=== PATIENT | male | born 1960 | race Caucasian/White ===

== ENCOUNTER 2017-01-02 10:36 | Emergency (ER) | payer BC ==
[~2017-01-02] VITALS: Ht 182.9 cm; Wt 83.4 kg
[2017-01-02 10:37] VITALS: TEMP 36.5; Ht 182.9 cm; Wt 83.4 kg
[2017-01-02] MEDS ORDERED: ONDANSETRON INJ 2 MG/ML 2 ML VIAL IV STA (10:48)
[2017-01-02] MEDS ORDERED: SODIUM CHLORIDE 0.9% 1000ML 1,000 ML IV STA (10:48)
[2017-01-02] MEDS ORDERED: MoRPHine SULFATE 4 MG/ML 1 ML CARP\\VIAL IV STA (10:48)
[2017-01-02 11:03] LABS: BASO % 0.6 %; BASO ABS # 0.04 K/uL (0-0.2); COMPLETE YES; EOS % 2.8 %; HEMATOCRIT 38.2 % (42-52); IG% 0.2 %; LYMPH % 26.8 %; LYMPH ABS # 1.75 K/uL (1.2-3.4); MEAN CELL VOLUME 86.2 fL (80-100); MEAN CORPUSCULAR HEMOGLOBIN 30.7 pg (25-34); MEAN CORPUSCULAR HGB CONC 35.6 g/dl (32-36); MEAN PLATELET VOLUME 9.4 fL (7.4-10.4); MONO % 8.4 %; NEUT % 61.2 %; PLATELET COUNT 255 K/uL (130-400); RED BLOOD COUNT 4.43 M/uL (4.7-6.1); WHITE BLOOD COUNT 6.53 K/uL (4.8-10.8)
--- NOTE | 2017-01-02 11:04 | EMERGENCY ROOM VISIT NOTE ---
History First contact with patient: 10:42 Chief Complaint: ABDOMINAL PAIN Stated Complaint: ABD. PAIN History of Present Illness The patient is a 56 year old male who presents to the Emergency Room with complaints of upper abdominal pain. The patient states his pain started approximately 45 minutes ago. The patient states that initially the pain came and went but has now been quite constant. He states the pain is in the upper abdomen, particularly the right side and he feels it into his back. He rates discomfort a 5/10. He denies fevers. He denies any chest pain, trouble breathing or pain with deep inspiration. He denies any nausea or vomiting. He denies any diarrhea. The patient has history of diabetes, hypertension and hyperlipidemia. He had a normal stress test at the beginning of this year. He has had cholecystectomy. Review of Systems A 10 system review of systems was completed with positives and pertinent negatives listed in the HPI. Past Medical/Surgical History Medical Problems: (1) Diabetes (2) Diabetes (3) Hyperlipidemia (4) Hypertension Social History Smoking Status: Never Smoker Housing Status: lives with family Current/Historical Medications Scheduled Aspirin (Aspir-81), 1 TAB PO DAILY Atorvastatin (Lipitor), 40 MG PO DAILY Bisoprolol Fumarate (Zebeta), 5 MG PO PM Cholecalciferol (Vitamin D3), 1 CAP PO DAILY Diltiazem Hcl Ext Rel (Tiazac), 360 MG PO DAILY Furosemide (Lasix), 40 MG PO DAILY Insulin Aspart (Novolog), 0 DAILY Insulin Glargine (Lantus Solostar), 42 UNITS SC QAM Iron Combinations (Iron Complex), 150 MG PO BID Ramipril (Ramipril), 1 CAP PO DAILY Allergies Coded Allergies: No Known Allergies (Unverified , 01/02/17) Physical Exam Vital Signs Date Time Temp Pulse Resp B/P (MAP) Pulse Ox O2 Delivery O2 Flow Rate FiO2 01/02/17 13:45 54 16 142/82 97 01/02/17 12:19 66 16 147/83 98 Room Air 01/02/17 11:10 62 01/02/17 10:37 36.5 16 18 173/87 99 Room Air Physical Exam VITALS: Vitals are noted on the nurse's note and reviewed by myself. Vital signs stable. The patient is afebrile. He is not tachycardic, tachypneic, hypoxic or hypotensive. GENERAL: This is a 56-year-old male, in no acute distress, nondiaphoretic, well- developed well-nourished. SKIN: The skin was pale, without rashes, erythema, edema, or bruising. There is no tenting of the skin. Capillary reflex less than 2 seconds. HEAD: Normocephalic atraumatic. EARS: The external ears are normal in appearance. EYES: Pupils equal round and reactive to light and accommodation. Conjunctivae without injection, sclerae without icterus. Extraocular movements intact. NOSE: Patent, turbinates without inflammation or discharge. MOUTH: Mucous membranes moist. Tonsils are not enlarged. Pharynx without erythema or exudate. Uvula midline. Airway patent. Tongue does not deviate. NECK: Supple without nuchal rigidity. No lymphadenopathy. No thyromegaly. Cervical spine is nontender. No JVD. HEART: Regular rate and rhythm without murmurs gallops or rubs. LUNGS: Clear to auscultation bilaterally without wheezes, rales or rhonchi. No retractions or accessory muscle use. ABDOMEN: Positive bowel sounds x 4. No obvious abdominal bruits. Soft, nontender, without masses or organomegaly. There is moderate tenderness to palpation to the upper abdomen, particularly right upper quadrant. MUSCULOSKELETAL: No muscle atrophy, erythema, or edema noted. Full range of motion strength in all extremities. Normal gait. Strength 5/5 throughout. NEURO: Patient was alert and oriented to person place and time. No focal neurological deficits. Medical Decision & Procedures ER Provider Diagnostic Interpretation: CT SCAN OF THE ABDOMEN AND PELVIS WITHOUT IV CONTRAST CLINICAL HISTORY: Upper abdominal and right flank pain. COMPARISON STUDY: No priors. TECHNIQUE: CT scan of the abdomen and pelvis is performed from the lung bases to the proximal femora. Images are reviewed in the axial, sagittal, and coronal planes. IV contrast was not administered for this examination as per the referring clinician. Automated dose control exposure was utilized. CT DOSE: 946.86 mGy.cm FINDINGS: Lung bases: The heart is top normal in size and without pericardial effusion. The coronary arteries are densely calcified. There is a small hiatal hernia. The lung bases are clear. Liver: The unenhanced liver is normal in size, contour, and attenuation. There is no intrahepatic biliary ductal dilatation. Gallbladder: Surgically absent noting clips in the gallbladder fossa. Spleen: Normal in size and attenuation. Pancreas: The unenhanced pancreas is moderately atrophic and grossly unremarkable. Adrenal glands: Unremarkable. Kidneys: The unenhanced kidneys demonstrate mild cortical atrophy and are without hydronephrosis. There are no renal calculi identified. Renovascular calcifications are noted. There is no evidence of contour deforming renal mass lesion. Abdominal vasculature: The abdominal aorta is normal in course and caliber noting moderate and age advanced atherosclerotic calcification. Bowel: The small bowel and colon are normal in course and caliber. There is mild to moderate colonic diverticulosis without CT evidence of acute diverticulitis. Moderate to severe constipation is observed. The appendix is well-visualized and normal. Peritoneum: There is no intraperitoneal free air or abdominal ascites. There is a small fat-containing umbilical hernia. Lymphadenopathy: None. Pelvic viscera: The bladder is normal as visualized. The prostate gland is not identified and presumed surgically absent. There is calcification of the penile tunica suggesting Peyronie's disease. Skeletal structures: No lytic or blastic lesions are seen. IMPRESSION: 1. There are no acute infectious or inflammatory findings in the abdomen or pelvis. 2. Moderate to severe constipation. No bowel obstruction is seen. 3. Mild to moderate colonic diverticulosis without CT evidence of acute diverticulitis. 4. The prostate gland is not identified and presumed surgically absent. [~ rep ct add3]] SINGLE VIEW CHEST CLINICAL HISTORY: Upper abdominal pain. FINDINGS: An AP, portable, upright chest radiograph is obtained. No prior studies are available for comparison at the time of dictation. The examination is mildly degraded by portable technique and patient rotation. The cardiomediastinal silhouette is unremarkable. The lungs and pleural spaces are clear. No pneumothorax is seen. The bony thorax is grossly intact. IMPRESSION: No active disease in the chest. Laboratory Results 01/02/17 10:55 Red Blood Count 4.43, Mean Corpuscular Volume 86.2, Mean Corpuscular Hemoglobin 30.7, Mean Corpuscular Hemoglobin Concent 35.6, Mean Platelet Volume 9.4, Neutrophils (%) (Auto) 61.2, Lymphocytes (%) (Auto) 26.8, Monocytes (%) (Auto) 8.4, Eosinophils (%) (Auto) 2.8, Basophils (%) (Auto) 0.6, Neutrophils # (Auto) 4.00, Lymphocytes # (Auto) 1.75, Monocytes # (Auto) 0.55, Eosinophils # (Auto) 0.18, Basophils # (Auto) 0.04 01/02/17 10:55 Test 01/02/17 10:55 01/02/17 11:00 01/02/17 11:14 White Blood Count 6.53 K/uL (4.8-10.8) Red Blood Count 4.43 M/uL (4.7-6.1) Hemoglobin 13.6 g/dL (14.0-18.0) Hematocrit 38.2 % (42-52) Mean Corpuscular Volume 86.2 fL (80-100) Mean Corpuscular Hemoglobin 30.7 pg (25-34) Mean Corpuscular Hemoglobin Concent 35.6 g/dl (32-36) Platelet Count 255 K/uL (130-400) Mean Platelet Volume 9.4 fL (7.4-10.4) Neutrophils (%) (Auto) 61.2 % Lymphocytes (%) (Auto) 26.8 % Monocytes (%) (Auto) 8.4 % Eosinophils (%) (Auto) 2.8 % Basophils (%) (Auto) 0.6 % Neutrophils # (Auto) 4.00 K/uL (1.4-6.5) Lymphocytes # (Auto) 1.75 K/uL (1.2-3.4) Monocytes # (Auto) 0.55 K/uL (0.11-0.59) Eosinophils # (Auto) 0.18 K/uL (0-0.5) Basophils # (Auto) 0.04 K/uL (0-0.2) RDW Standard Deviation 41.0 fL (36.4-46.3) RDW Coefficient of Variation 12.9 % (11.5-14.5) Immature Granulocyte % (Auto) 0.2 % Immature Granulocyte # (Auto) 0.01 K/uL (0.00-0.02) Prothrombin Time 10.7 SECONDS (9.0-12.0) Prothromb Time International Ratio 1.0 (0.9-1.1) Activated Partial Thromboplast Time 26.5 SECONDS (21.0-31.0) Partial Thromboplastin Ratio 1.0 Anion Gap 9.0 mmol/L (3-11) Est Creatinine Clear Calc Drug Dose 27.3 ml/min Estimated GFR () 22.4 Estimated GFR (Non- 19.3 BUN/Creatinine Ratio 13.5 (10-20) Calcium Level 8.9 mg/dl (8.5-10.1) Total Bilirubin 0.6 mg/dl (0.2-1) Aspartate Amino Transf (AST/SGOT) 25 U/L (15-37) Alanine Aminotransferase (ALT/SGPT) 33 U/L (12-78) Alkaline Phosphatase 73 U/L (45-117) Total Creatine Kinase 160 U/L (39-308) Creatine Kinase MB 2.1 ng/ml (0.5-3.6) Creatine Kinase MB Ratio 1.3 (0-3.0) Troponin I < 0.015 ng/ml (0-0.045) Total Protein 7.2 gm/dl (6.4-8.2) Albumin 4.4 gm/dl (3.4-5.0) Globulin 2.8 gm/dl (2.5-4.0) Albumin/Globulin Ratio 1.6 (0.9-2) Lipase 134 U/L (73-393) Urine Color YELLOW Urine Appearance CLEAR (CLEAR) Urine pH 5.0 (4.5-7.5) Urine Specific [place] 1.015 (1.000-1.030) Urine Protein 1+ (NEG) Urine Glucose (UA) NEG (NEG) Urine Ketones NEG (NEG) Urine Occult Blood NEG (NEG) Urine Nitrite NEG (NEG) Urine Bilirubin NEG (NEG) Urine Urobilinogen NEG (NEG) Urine Leukocyte Esterase NEG (NEG) Urine WBC (Auto) 0 /hpf (0-5) Urine RBC (Auto) 0-4 /hpf (0-4) Urine Hyaline Casts (Auto) 1-5 /lpf (0-5) Urine Epithelial Cells (Auto) 0-5 /lpf (0-5) Urine Bacteria (Auto) NEG (NEG) Lactic Acid Level 1.2 mmol/L (0.4-2.0) Medications Administered Medications (Trade) Dose Ordered Sig/Ludin Route Start Time Stop Time Status Last Admin Dose Admin Sodium Chloride 1,000 ml @ 999 mls/hr Q1H1M STAT IV 01/02/17 10:48 01/02/17 11:48 DC 01/02/17 11:15 999 MLS/HR Ondansetron HCl (Zofran Inj) 4 mg NOW STAT IV 01/02/17 10:48 01/02/17 10:51 DC 01/02/17 11:14 4 MG Morphine Sulfate (MoRPHine SULFATE INJ) 4 mg NOW STAT IV 01/02/17 10:48 01/02/17 10:51 DC 01/02/17 11:14 4 MG Polyethylene (Miralax Powder Packet) 17 gm NOW ONCE PO 01/02/17 13:00 01/02/17 13:01 DC 01/02/17 13:10 17 GM Procedure The patient was monitored on a cardiac rehabilitation specialist. They maintained a normal sinus rhythm without ectopy. ECG Indication: abdominal pain Rate (beats per minute): 63 Rhythm: normal sinus Findings: no acute ischemic change Comparison ECG Date: no prior available ED Course The patient was seen and examined. Previous visits were reviewed. The patient does not have a fever or leukocytosis. He does not have any significant electrolyte abnormalities. Troponin was not elevated. Lipase was not elevated. Lactic acid was within normal limits at 1.2. INR was 1.0. Urinalysis is negative. The patient does have elevation in his BUN/creatinine creatinine and states that he has chronic kidney disease. He could not recall what his baseline creatinine is. He states that his GFR is usually around 20 and today it is 19.3. I did ask the certified legal secretary specialist to attempt to contact [facility] to obtain previous laboratory studies. This was unsuccessful. EKG revealed a normal sinus rhythm with a rate of 63 bpm and no acute ischemia CT scan of the abdomen and pelvis was obtained as above. The patient presented to the emergency department with acute onset of upper abdominal pain. He had no chest pain or trouble breathing. The patient underwent the above workup. The CT scan reveals severe constipation. This may be the explanation for the patient's pain. He was feeling significantly improved after 4 mg IV morphine, 4 mg IV Zofran. He was given oral MiraLAX. Given the patient's presentation and only abnormal finding of constipation, I did ask Dr. Mendoza to evaluate the patient as well. He evaluated the patient and agrees with the assessment and treatment plan. The patient is encouraged to continue MiraLAX. He should return with any worsening symptoms. Otherwise, he should follow-up with his family doctor on Wednesday. Medication Reconciliation: I attest that I have personally reviewed the patient' s current medication list. Blood pressure screening: The patient was found to have an elevated blood pressure and was referred to their primary care doctor for recheck and further treatment Medical Decision DIFFERENTIAL DIAGNOSIS: Hepatitis, cholecystitis, cholangitis, biliary colic, pancreatitis, pneumonia, subdiaphragmatic abscess, appendicitis, inguinal hernia , nephrolithiasis, inflammatory bowel disease, mesenteric adenitis, peptic ulcer disease, GERD, gastritis, pancreatitis, myocardial infarction, pericarditis, ruptured aortic aneurysm, appendicitis, gastroenteritis, bowel obstruction, splenic infarct, diverticulitis, mesenteric ischemia, metabolic, peritonitis, among others. Impression Primary Impression: Abdominal pain, bilateral upper quadrant Additional Impression: Constipation Departure Information Dispostion Home / Self-Care Condition GOOD Referrals Homero Sahni M.D. (PCP) Patient Instructions Abdominal Pain, Constipation, My [facility] Additional Instructions Take another dose of Miralax in 6-8 hours if no bowel movement Return with worsening symptoms Otherwise, follow up with your family doctor next week Problem Qualifiers Additional Impression:
[2017-01-02 11:11] LABS: PROTHROMBIN TIME (PATIENT) 10.7 SECONDS (9.0-12.0)
[2017-01-02 11:20] LABS: ALT/SGPT 33 U/L (12-78); BLOOD UREA NITROGEN 46 mg/dl (7-18); BUN/CREATININE RATIO 13.5 (10-20); CALCIUM 8.9 mg/dl (8.5-10.1); CARBON DIOXIDE 23 mmol/L (21-32); CHLORIDE 105 mmol/L (98-107); GLUCOSE 168 mg/dl (70-99); POTASSIUM 4.3 mmol/L (3.5-5.1); SODIUM 137 mmol/L (136-145)
[2017-01-02 11:22] LABS: URINE APPEARANCE CLEAR (CLEAR); URINE BILIRUBIN NEG (NEG); URINE COLOR YELLOW; URINE EPITHELIAL CELL AUTO 0-5 /lpf (0-5); URINE NITRITE NEG (NEG); URINE SPECIFIC GRAVITY 1.015 (1.000-1.030); UROBILINOGEN NEG (NEG); ZZUR CULT IF INDIC CLEAN CATCH NO
--- NOTE | 2017-01-02 11:22 | DIAGNOSTIC IMAGING REPORT ---
SINGLE VIEW CHEST CLINICAL HISTORY: Upper abdominal pain. FINDINGS: An AP, portable, upright chest radiograph is obtained. No prior studies are available for comparison at the time of dictation. The examination is mildly degraded by portable technique and patient rotation. The cardiomediastinal silhouette is unremarkable. The lungs and pleural spaces are clear. No pneumothorax is seen. The bony thorax is grossly intact. IMPRESSION: No active disease in the chest. Electronically signed by: Jama Lindo M.D. 01/02/2017 11:20 AM Dictated Date/Time: 01/02/2017 11:20 AM
[2017-01-02 11:25] LABS: ALB/GLOB RATIO 1.6 (0.9-2); ALKALINE PHOSPHATASE 73 U/L (45-117); AST/SGOT 25 U/L (15-37); CKMB/CK RATIO 1.3 (0-3.0)
[2017-01-02 11:37] LABS: MANUAL MICROSCOPIC REQUIRED? NO; REVIEW REQ? NO
--- NOTE | 2017-01-02 11:38 | DIAGNOSTIC IMAGING REPORT ---
CT SCAN OF THE ABDOMEN AND PELVIS WITHOUT IV CONTRAST CLINICAL HISTORY: Upper abdominal and right flank pain. COMPARISON STUDY: No priors. TECHNIQUE: CT scan of the abdomen and pelvis is performed from the lung bases to the proximal femora. Images are reviewed in the axial, sagittal, and coronal planes. IV contrast was not administered for this examination as per the referring clinician. Automated dose control exposure was utilized. CT DOSE: 946.86 mGy.cm FINDINGS: Lung bases: The heart is top normal in size and without pericardial effusion. The coronary arteries are densely calcified. There is a small hiatal hernia. The lung bases are clear. Liver: The unenhanced liver is normal in size, contour, and attenuation. There is no intrahepatic biliary ductal dilatation. Gallbladder: Surgically absent noting clips in the gallbladder fossa. Spleen: Normal in size and attenuation. Pancreas: The unenhanced pancreas is moderately atrophic and grossly unremarkable. Adrenal glands: Unremarkable. Kidneys: The unenhanced kidneys demonstrate mild cortical atrophy and are without hydronephrosis. There are no renal calculi identified. Renovascular calcifications are noted. There is no evidence of contour deforming renal mass lesion. Abdominal vasculature: The abdominal aorta is normal in course and caliber noting moderate and age advanced atherosclerotic calcification. Bowel: The small bowel and colon are normal in course and caliber. There is mild to moderate colonic diverticulosis without CT evidence of acute diverticulitis. Moderate to severe constipation is observed. The appendix is well-visualized and normal. Peritoneum: There is no intraperitoneal free air or abdominal ascites. There is a small fat-containing umbilical hernia. Lymphadenopathy: None. Pelvic viscera: The bladder is normal as visualized. The prostate gland is not identified and presumed surgically absent. There is calcification of the penile tunica suggesting Peyronie's disease. Skeletal structures: No lytic or blastic lesions are seen. IMPRESSION: 1. There are no acute infectious or inflammatory findings in the abdomen or pelvis. 2. Moderate to severe constipation. No bowel obstruction is seen. 3. Mild to moderate colonic diverticulosis without CT evidence of acute diverticulitis. 4. The prostate gland is not identified and presumed surgically absent. Electronically signed by: Jama Lindo M.D. 01/02/2017 11:37 AM Dictated Date/Time: 01/02/2017 11:32 AM
[2017-01-02] MEDS ORDERED: LPT/40 PO (12:38)
[2017-01-02] MEDS ORDERED: NVLG (12:38)
[2017-01-02] MEDS ORDERED: IRON1CAP2 PO (12:38)
[2017-01-02] MEDS ORDERED: ASPI-232 PO (12:38)
[2017-01-02] MEDS ORDERED: FURO40TA3 PO (12:38)
[2017-01-02] MEDS ORDERED: DILT-119 PO (12:38)
[2017-01-02] MEDS ORDERED: RAMI5CAP PO (12:38)
[2017-01-02] MEDS ORDERED: CHOL2000 PO (12:38)
[2017-01-02] MEDS ORDERED: INSDGIPEN SC (12:38)
[2017-01-02] MEDS ORDERED: BISO5TAB3 PO (12:38)
--- NOTE | 2017-01-02 12:58 | EMERGENCY ROOM VISIT NOTE ---
ED Visit Note First contact with patient: 10:42 56-year-old male with abdominal pain and near syncope type symptoms. The patient was fully evaluated by Chetna Harris PA-C. Please see her note. I also independently evaluated patient. The patient improved markedly while here in the ED. Multiple labs and imaging were obtained. Please see those results. Patient appears to be constipated. He was given MiraLAX here. He does not appear to have a bowel obstruction. Patient was given MiraLAX here in the ED.
[2017-01-02] MEDS ORDERED: POLYETHYLENE (MIRALAX) 17 GM PACK PO ONE (13:00)
[2017-01-02 13:45] VITALS: BP 142/82; PULSE 54; O2SAT 97
== END 2017-01-02 13:48 | disposition home or self-care (01) ==
LOC: C.EDB 10:38 → C.EDC 13:48
DX: R10.10 Upper abdominal pain, unspecified (principal); K59.00 Constipation, unspecified; K57.90 Diverticulosis of intestine, part unspecified, without perforation or abscess without bleeding; E11.9 Type 2 diabetes mellitus without complications; E78.5 Hyperlipidemia, unspecified; I10 Essential (primary) hypertension